=== PATIENT | male | born 1985 | race Caucasian/White ===

== ENCOUNTER → 2017-02-16 | Outpatient (CLI) | payer OTHER ==
[~2017-02-16] MED LIST: DICY20TA57 PO; METH4TAB PO
--- NOTE | 2017-02-16 14:45 | Diagnostic Imaging Report ---
PROCEDURE: MRI left joint lower extremity without contrast. TECHNIQUE: Multiplanar, multisequence non contrast-enhanced MRI of the left lower extremity was accomplished. INDICATION: Lateral knee pain. FINDINGS: The anterior cruciate and posterior cruciate ligaments are intact. Medial collateral ligament is intact. The biceps femoris, fibular collateral, and iliotibial band are intact. Both the medial and lateral menisci are normal in signal intensity and morphology. The articular cartilage is well maintained in all three knee joint compartments. There is a very small knee joint effusion. There are no marrow signal intensity abnormalities. There are no other focal soft tissue abnormalities. IMPRESSION: Small knee joint effusion. No other internal derangement of the knee. Dictated by: Dictated on workstation # [id number]
== END ==
LOC: RAD 13:23
PROVIDERS: ATTEND Orthopaedic Surgery
DX: M25.462 Effusion, left knee (principal)
CPT/HCPCS: 73721

== ENCOUNTER 2017-04-18 19:36 | Emergency (ER) | payer BC, OTHER ==
[~2017-04-18] VITALS: Ht 193 cm; Wt 108.9 kg
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
--- NOTE | 2017-04-18 19:51 | ED Abdominal Pain ---
General Stated Complaint: STOMACH PAIN Source of Information: Patient Exam Limitations: No Limitations History of Present Illness Time Seen By Provider: 19:48 Initial Comments To ER with a one-week history of right lower quadrant abdominal pain. The pain is always present but it is intermittently worse. Exacerbating factors include movement such as bending forward to tie his shoes. He did have one episode of diarrhea yesterday. He has had some urinary urgency but without obvious blood in the urine. He did have some nausea starting today without vomiting. Timing/Duration: 1-2 Days Severity/Quality: Moderate Location: RLQ Radiation: No Radiation Activities at Onset: None Associated Symptoms: No Back Pain, No Chest Pain, No Diaphoresis, No Fever/ Chills, Nausea/Vomiting Allergies and Home Medications Allergies Coded Allergies: No Known Drug Allergies (Unverified , 11/24/11) Home Medications No Active Prescriptions or Reported Meds Review of Systems Constitutional: see HPI EENTM: No Symptoms Reported Respiratory: No Symptoms Reported Cardiovascular: No Symptoms Reported Gastrointestinal: See HPI, Abdominal Pain Genitourinary: No Symptoms Reported Musculoskeletal: no symptoms reported Skin: no symptoms reported Psychiatric/Neurological: No Symptoms Reported Endocrine: No Symptoms Reported Past Qudklgi-Egrzov-Baqsuk Hx Patient Social History Recent Foreign Travel: No Contact w/Someone Who Travel: No Reproductive System Hx Reproductive Disorders: No Sexually Transmitted Disease: No Gastrointestinal Gastrointestinal Disorders: Colitis Physical Exam Vital Signs VS - Last 72 Hours, by Label 04/18/17 19:45 Temp 98.5 Pulse 62 Resp 16 B/P (MAP) 121/84 Pulse Ox 98 O2 Delivery Room Air Capillary Refill : General Appearance: WD/WN, no apparent distress HEENT: PERRL/EOMI, normal ENT inspection Neck: non-tender, full range of motion Respiratory: no respiratory distress, no accessory muscle use Gastrointestinal: normal bowel sounds, soft, tenderness (right lower quadrant) Extremities: normal range of motion, non-tender Neurologic/Psychiatric: alert, normal mood/affect, oriented x 3 Skin: normal color, warm/dry Progress/Results/Core Measures Results/Orders Lab Results Laboratory Tests Test 04/18/17 19:45 04/18/17 19:52 Range/Units Urine Color YELLOW Urine Clarity CLEAR Urine pH 5 5-9 Urine Specific [place] 1.025 H 1.016-1.022 Urine Protein NEGATIVE NEGATIVE Urine Glucose (UA) NEGATIVE NEGATIVE Urine Ketones NEGATIVE NEGATIVE Urine Nitrite NEGATIVE NEGATIVE Urine Bilirubin NEGATIVE NEGATIVE Urine Urobilinogen NORMAL NORMAL MG/DL Urine Leukocyte Esterase NEGATIVE NEGATIVE Urine RBC (Auto) NEGATIVE NEGATIVE Urine RBC NONE /HPF Urine WBC RARE /HPF Urine Crystals NONE /LPF Urine Bacteria NEGATIVE /HPF Urine Casts NONE /LPF Urine Mucus SMALL H /LPF Urine Culture Indicated NO White Blood Count 7.7 4.3-11.0 10^3/uL Red Blood Count 4.98 4.35-5.85 10^6/uL Hemoglobin 15.1 13.3-17.7 G/DL Hematocrit 43 40-54 % Mean Corpuscular Volume 86 80-99 FL Mean Corpuscular Hemoglobin 30 25-34 PG Mean Corpuscular Hemoglobin Concent 35 32-36 G/DL Red Cell Distribution Width 12.8 10.0-14.5 % Platelet Count 244 130-400 10^3/uL Mean Platelet Volume 9.1 7.4-10.4 FL Neutrophils (%) (Auto) 56 42-75 % Lymphocytes (%) (Auto) 36 12-44 % Monocytes (%) (Auto) 7 0-12 % Eosinophils (%) (Auto) 1 0-10 % Basophils (%) (Auto) 0 0-10 % Neutrophils # (Auto) 4.3 1.8-7.8 X 10^3 Lymphocytes # (Auto) 2.7 1.0-4.0 X 10^3 Monocytes # (Auto) 0.6 0.0-1.0 X 10^3 Eosinophils # (Auto) 0.1 0.0-0.3 10^3/uL Basophils # (Auto) 0.0 0.0-0.1 10^3/uL Sodium Level 141 135-145 MMOL/L Potassium Level 3.6 3.6-5.0 MMOL/L Chloride Level 107 98-107 MMOL/L Carbon Dioxide Level 24 21-32 MMOL/L Anion Gap 10 5-14 MMOL/L Blood Urea Nitrogen 9 7-18 MG/DL Creatinine 1.00 0.60-1.30 MG/DL Estimat Glomerular Filtration Rate > 60 BUN/Creatinine Ratio 9 Glucose Level 97 70-105 MG/DL Calcium Level 9.1 8.5-10.1 MG/DL Total Bilirubin 0.7 0.1-1.0 MG/DL Aspartate Amino Transf (AST/SGOT) 24 5-34 U/L Alanine Aminotransferase (ALT/SGPT) 50 0-55 U/L Alkaline Phosphatase 70 40-136 U/L C-Reactive Protein High Sensitivity 0.68 H 0.00-0.50 MG/DL Total Protein 7.5 6.4-8.2 GM/DL Albumin 4.4 3.2-4.5 GM/DL Lipase 24 8-78 U/L My Orders Orders - ELSA BERGER APRN Cbc With Automated Diff (04/18/17 19:47) Hs C Reactive Protein (04/18/17 19:47) Ua Culture If Indicated (04/18/17 19:47) Saline Lock/Iv-Start (04/18/17 19:47) Comprehensive Metabolic Panel (04/18/17 19:47) Lipase (04/18/17 19:47) Ct Abd/Pelv W (Appendicitis) (04/18/17 19:47) Iohexol Injection (Omnipaque 350 Mg/Ml 1 (04/18/17 20:00) Ns (Ivpb) (Sodium Chloride 0.9% Ivpb Bag (04/18/17 20:00) Medications Given in ED Current Medications Medications Dose Ordered Sig/Chuyita Route Start Time Stop Time Status Last Admin Dose Admin Iohexol 100 ml ONCE ONCE IV 04/18/17 20:00 04/18/17 20:32 DC 04/18/17 20:10 100 ML Sodium Chloride 100 ml ONCE ONCE IV 04/18/17 20:00 04/18/17 20:32 DC 04/18/17 20:10 80 ML Vital Signs/I&O Vital Sign - Last 12Hours 04/18/17 19:45 Temp 98.5 Pulse 62 Resp 16 B/P (MAP) 121/84 Pulse Ox 98 O2 Delivery Room Air Diagnostic Imaging Diagonstic Imaging: CT Comments NAME: SARAHI BRAVO [facility] REC#: [id number] PT STATUS: REG ER : 1985 PHYSICIAN: ELSA BERGER APRN ADMIT DATE: 04/18/17/ER Draft Date of Exam:04/18/17 CT ABD/PELV W (APPENDICITIS) PROCEDURE: CT abdomen and pelvis with contrast, rule out appendicitis. TECHNIQUE: Multiple contiguous axial images were obtained through the abdomen and pelvis after the administration of intravenous contrast. INDICATION: Right lower quadrant pain. COMPARISON: 09/23/2012. FINDINGS: The lung bases are clear. The appendix is visualized and is normal. There is no periappendiceal edema. The terminal ileum is normal. Small bowel is not distended. No bowel wall thickening is seen. The colon shows normal stool and gas pattern without evidence of constipation. No findings to indicate diverticulitis. No adenopathy is seen to suggest mesenteric adenitis. The liver appears normal. The gallbladder and bile ducts are normal. The pancreas and spleen are normal. The adrenal glands are normal. Kidneys appear normal. There is normal enhancement of the abdominal organs and vessels following IV contrast. There is no free air or free fluid. No bony lesions have developed. IMPRESSION: 1. The appendix is well visualized and normal. No findings to suggest inflammatory bowel disease. 2. No acute abdominal findings demonstrated. Dictated on workstation # [id number] Dict: 04/18/172030 Trans: 04/18/172035 [facility] [id number] Interpreted by: CAL SHORT MD Electronically signed by: Departure Impression Impression: Primary Impression: abdominal pain Disposition: 01 HOME, SELF-CARE Condition: Stable Departure-Patient Inst. Decision time for Depature: 20:39 Referrals: YOUNG MCGEE MD (PCP/Family) Primary Care Physician Patient Instructions: Acute Abdomen (Belly Pain), Adult (DC) Add. Discharge Instructions: 1. Follow-up with Dr. Mcgee 2. Return to ER for any worsening symptoms or other concerns 3. Scripts No Active Prescriptions or Reported Meds Copy Copies To 1: YOUNG MCGEE MD, PETER J LITIGATION ASSOCIATE Apr 18, 2017 19:50
[2017-04-18 19:59] LABS: BILIRUBIN,URINE NEGATIVE (NEGATIVE); KETONES,URINE NEGATIVE (NEGATIVE); LEUKOCYTE ESTERASE ,URINE NEGATIVE (NEGATIVE); NITRITE,URINE NEGATIVE (NEGATIVE); PH,URINE 5 (5-9); PROTEIN,URINE NEGATIVE (NEGATIVE); UROBILINOGEN,URINE NORMAL (NORMAL)
[2017-04-18 19:59] LABS: BASOPHILS % (AUTO) 0 % (0-10); EOSINOPHILS # (AUTO) 0.1 10^3/uL (0.0-0.3); EOSINOPHILS % (AUTO) 1 % (0-10); LYMPHOCYTES # (AUTO) 2.7 X 10^3 (1.0-4.0); LYMPHOCYTES % (AUTO) 36 % (12-44); MEAN CORPUSCULAR HEMOGLOBIN 30 PG (25-34); MEAN CORPUSCULAR HGB CONC 35 G/DL (32-36); MEAN CORPUSCULAR VOLUME 86 FL (80-99); MEAN PLATELET VOLUME 9.1 FL (7.4-10.4); MONOCYTES # (AUTO) 0.6 X 10^3 (0.0-1.0); MONOCYTES % (AUTO) 7 % (0-12); NEUTROPHILS # (AUTO) 4.3 X 10^3 (1.8-7.8); NEUTROPHILS % (AUTO) 56 % (42-75); PLATELET COUNT 244 10^3/uL (130-400); RED BLOOD COUNT 4.98 10^6/uL (4.35-5.85); RED CELL DISTRIBUTION WIDTH 12.8 % (10.0-14.5); WHITE BLOOD COUNT 7.7 10^3/uL (4.3-11.0)
[2017-04-18] MEDS ORDERED: NS 100 ML (IVPB) BAG IV ONE (20:00)
[2017-04-18] MEDS ORDERED: IOHEXOL 350 MG/ML 100 ML (OMNIPAQUE 350) VIAL IV ONE (20:00)
[2017-04-18 20:19] LABS: ALANINE AMINOTRANSFERASE 50 U/L (0-55); ALBUMIN 4.4 GM/DL (3.2-4.5); ANION GAP 10 MMOL/L (5-14); ASPARTATE AMINO TRANSFERASE 24 U/L (5-34); BILIRUBIN,TOTAL 0.7 MG/DL (0.1-1.0); BLOOD UREA NITROGEN 9 MG/DL (7-18); BUN/CREATININE RATIO 9; CALCIUM 9.1 MG/DL (8.5-10.1); CARBON DIOXIDE 24 MMOL/L (21-32); CHLORIDE 107 MMOL/L (98-107); GFR ESTIMATED > 60; GLUCOSE 97 MG/DL (70-105); LIPASE 24 U/L (8-78); POTASSIUM 3.6 MMOL/L (3.6-5.0); SODIUM 141 MMOL/L (135-145); TOTAL PROTEIN 7.5 GM/DL (6.4-8.2); hs C REACTIVE PROTEIN 0.68 MG/DL (0.00-0.50)
[2017-04-18 20:21] LABS: WBC,URINE RARE /HPF
--- NOTE | 2017-04-18 20:36 | Diagnostic Imaging Report ---
PROCEDURE: CT abdomen and pelvis with contrast, rule out appendicitis. TECHNIQUE: Multiple contiguous axial images were obtained through the abdomen and pelvis after the administration of intravenous contrast. INDICATION: Right lower quadrant pain. COMPARISON: 09/23/2012. FINDINGS: The lung bases are clear. The appendix is visualized and is normal. There is no periappendiceal edema. The terminal ileum is normal. Small bowel is not distended. No bowel wall thickening is seen. The colon shows normal stool and gas pattern without evidence of constipation. No findings to indicate diverticulitis. No adenopathy is seen to suggest mesenteric adenitis. The liver appears normal. The gallbladder and bile ducts are normal. The pancreas and spleen are normal. The adrenal glands are normal. Kidneys appear normal. There is normal enhancement of the abdominal organs and vessels following IV contrast. There is no free air or free fluid. No bony lesions have developed. IMPRESSION: 1. The appendix is well visualized and normal. No findings to suggest inflammatory bowel disease. 2. No acute abdominal findings demonstrated. Dictated by: Dictated on workstation # [id number]
[2017-04-18 20:49] VITALS: BP 122/80
== END 2017-04-18 20:49 | disposition home or self-care (01) ==
LOC: ER 19:36
DX: R10.31 Right lower quadrant pain (principal)
CPT/HCPCS: 36415; 74177; 80053; 81000; 83690; 85025; 86141

== ENCOUNTER 2018-09-30 15:25 | Emergency (ER) | payer OTHER, BC ==
[~2018-09-30] VITALS: Ht 190.5 cm; Wt 102.1 kg
[2018-09-30 15:27] VITALS: BP 144/97
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
[2018-09-30] MEDS ORDERED: TETANUS,DIPTH,PERTUSS P/F (BOOSTRIX) 0.5 ML VIAL IM ONE (15:45)
--- NOTE | 2018-09-30 16:03 | Diagnostic Imaging Report ---
INDICATION: Back pain. 3 views were obtained. FINDINGS: Alignment, vertebral body heights and disc spaces are within normal limits. There is no spondylolysis or spondylolisthesis. There is no acute fracture or traumatic subluxation. IMPRESSION: No acute radiographic abnormality. Dictated by: Dictated on workstation # [id number]
--- NOTE | 2018-09-30 16:22 | Diagnostic Imaging Report ---
PROCEDURE: CT head and CT cervical spine without contrast. TECHNIQUE: Multiple contiguous axial images were obtained through the brain and cervical spine without the use of intravenous contrast. Sagittal and coronal reformations through the cervical spine were then performed. Auto Exposure Controls were utilized during the CT exam to meet ALARA standards for radiation dose reduction. INDICATION: Head and neck pain after trauma. FINDINGS: The ventricles and sulci are within normal limits. There is no hydrocephalus or cerebral edema. There is no midline shift or mass effect. There is no intracranial mass, hemorrhage or extra-axial fluid collection. The visualized paranasal sinuses and mastoid air cells are clear. No fractures are identified. CERVICAL SPINE: Alignment is normal. There is no fracture or traumatic subluxation. The prevertebral soft tissues are within normal limits. The odontoid is intact and the lateral masses are well aligned. There are no soft tissue abnormalities. IMPRESSION: 1. No acute intracranial process. 2. No focal abnormality in the cervical spine. Dictated by: Dictated on workstation # [id number]
[2018-09-30] MEDS ORDERED: METH-313 PO (16:25)
--- OUTSIDE RECORDS SUMMARY | 2018-09-30 17:32 | XMS REPORT | Continuity of Care Document ---
Author Organization Unknown Address Unknown Allergies Active Description Code Type Severity Reaction Onset Reported/Identified Relationship to Patient Clinical Status Yes No Known Drug Allergies [id number] Drug Allergy Unknown N/A 11/24/2011 Medications There is no data. 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 12/19/2015 Ot V72.84 EXAM PRE- OPERATIVE NOS 12/19/2015 Ot 565.0 ANAL FISSURE 12/19/2015 Ot V72.84 EXAM PRE- OPERATIVE NOS 12/19/2015 BOB DO JOLIE Kasper Ot M75.91 SHOULDER LESION, UNSPECIFIED, RIGHT SHOU 12/19/2015 BBO JOLIE Kasper Ot 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 09/30/2016 Ot V72.84 EXAM PRE- OPERATIVE NOS 09/30/2016 Ot 565.0 ANAL FISSURE 09/30/2016 Ot V72.84 EXAM PRE- OPERATIVE NOS 09/30/2016 BOB JOLIE Kasper Ot M75.91 SHOULDER LESION, UNSPECIFIED, RIGHT SHOU 09/30/2016 BOB JOLIE Kasper Ot 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 02/12/2017 Ot V72.84 EXAM PRE- OPERATIVE NOS 02/12/2017 Ot 565.0 ANAL FISSURE 02/12/2017 Ot V72.84 EXAM PRE- OPERATIVE NOS 02/12/2017 BOB JOLIE Kasper Ot M75.91 SHOULDER LESION, UNSPECIFIED, RIGHT SHOU 02/12/2017 BOB DO, JOLIE Ranjith Ot 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 04/18/2017 Ot V72.84 EXAM PRE- OPERATIVE NOS 04/18/2017 Ot 565.0 ANAL FISSURE 04/18/2017 Ot V72.84 EXAM PRE- OPERATIVE NOS 04/18/2017 BOB DO, JOLIE Ranjith Ot M75.91 SHOULDER LESION, UNSPECIFIED, RIGHT SHOU 04/18/2017 BOB DO, JOLIE Ranjith Ot 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 Results Test Result Range Complete urinalysis with reflex to culture - 04/18/17 19:45 Urine color determination YELLOW NRG Urine clarity determination CLEAR NRG Urine pH measurement by test strip 5 5-9 Specific gravity of urine by test strip 1.025 1.016- 1.022 Urine protein assay by test strip, semi-quantitative NEGATIVE NEGATIVE Urine glucose detection by automated test strip NEGATIVE NEGATIVE Erythrocytes detection in urine sediment by light microscopy NEGATIVE NEGATIVE Urine ketones detection by automated test strip NEGATIVE NEGATIVE Urine nitrite detection by test strip NEGATIVE NEGATIVE Urine total bilirubin detection by test strip NEGATIVE NEGATIVE Urine urobilinogen measurement by automated test strip (mass/volume) NORMAL NORMAL Urine leukocyte esterase detection by dipstick NEGATIVE NEGATIVE Automated urine sediment erythrocyte count by microscopy (number/high power field) NONE NRG Automated urine sediment leukocyte count by microscopy (number/high power field ) RARE NRG Bacteria detection in urine sediment by light microscopy NEGATIVE NRG Crystals detection in urine sediment by light microscopy NONE NRG Casts detection in urine sediment by light microscopy NONE NRG Mucus detection in urine sediment by light microscopy SMALL NRG Complete urinalysis with reflex to culture NO NRG Complete blood count (CBC) with automated white blood cell (WBC) differential - 04/18/17 19:52 Blood leukocytes automated count (number/volume) 7.7 10*3/uL 4.3-11.0 Blood erythrocytes automated count (number/volume) 4.98 10*6/uL 4.35-5.85 Venous blood hemoglobin measurement (mass/volume) 15.1 g/dL 13.3-17.7 Blood hematocrit (volume fraction) 43 % 40-54 Automated erythrocyte mean corpuscular volume 86 [foz_us] 80-99 Automated erythrocyte mean corpuscular hemoglobin (mass per erythrocyte) 30 pg 25-34 Automated erythrocyte mean corpuscular hemoglobin concentration measurement ( mass/volume) 35 g/dL 32-36 Automated erythrocyte distribution width ratio 12.8 % 10.0-14.5 Automated blood platelet count (count/volume) 244 10*3/uL 130-400 Automated blood platelet mean volume measurement 9.1 [foz_us] 7.4-10.4 Automated blood neutrophils/100 leukocytes 56 % 42-75 Automated blood lymphocytes/100 leukocytes 36 % 12-44 Blood monocytes/100 leukocytes 7 % 0-12 Automated blood eosinophils/100 leukocytes 1 % 0-10 Automated blood basophils/100 leukocytes 0 % 0-10 Blood neutrophils automated count (number/volume) 4.3 10*3 1.8-7.8 Blood lymphocytes automated count (number/volume) 2.7 10*3 1.0-4.0 Blood monocytes automated count (number/volume) 0.6 10*3 0.0-1.0 Automated eosinophil count 0.1 10*3/uL 0.0-0.3 Automated blood basophil count (count/volume) 0.0 10*3/uL 0.0-0.1 Comprehensive metabolic panel - 04/18/17 19:52 Serum or plasma sodium measurement (moles/volume) 141 mmol/L 135-145 Serum or plasma potassium measurement (moles/volume) 3.6 mmol/L 3.6-5.0 Serum or plasma chloride measurement (moles/volume) 107 mmol/L 98-107 Carbon dioxide 24 mmol/L 21-32 Serum or plasma anion gap determination (moles/volume) 10 mmol/L 5-14 Serum or plasma urea nitrogen measurement (mass/volume) 9 mg/dL 7-18 Serum or plasma creatinine measurement (mass/volume) 1.00 mg/dL 0.60-1.30 Serum or plasma urea nitrogen/creatinine mass ratio 9 NRG Serum or plasma creatinine measurement with calculation of estimated glomerular filtration rate > NRG Serum or plasma glucose measurement (mass/volume) 97 mg/dL 70-105 Serum or plasma calcium measurement (mass/volume) 9.1 mg/dL 8.5-10.1 Serum or plasma total bilirubin measurement (mass/volume) 0.7 mg/dL 0.1-1.0 Serum or plasma alkaline phosphatase measurement (enzymatic activity/volume) 70 U/L 40-136 Serum or plasma aspartate aminotransferase measurement (enzymatic activity/ volume) 24 U/L 5-34 Serum or plasma alanine aminotransferase measurement (enzymatic activity/volume ) 50 U/L 0-55 Serum or plasma protein measurement (mass/volume) 7.5 g/dL 6.4-8.2 Serum or plasma albumin measurement (mass/volume) 4.4 g/dL 3.2-4.5 Lipase - 04/18/17 19:52 Lipase 24 U/L 8-78 Serum or plasma C reactive protein measurement (mass/volume) - 04/18/17 19:52 Serum or plasma C reactive protein measurement (mass/volume) 0.68 mg /dL 0.00-0.50 Encounters ACCT No. Visit Date/Time Discharge Status Pt. Type Provider Facility Loc./Unit Complaint [id number] 09/30/2018 15:26:00 09/30/2018 16:32:00 DIS Emergency ELSA BERGER APRN [facility] ER RAN INTO [facility] ON LICENSE OF [facility] [id number] 04/18/2017 19:36:00 04/18/2017 20:49:00 DIS Emergency ELSA BERGER APRN [facility] ER STOMACH PAIN [id number] 02/16/2017 13:23:00 02/16/2017 23:59:59 CLS Outpatient JOLIE ROJAS DO [facility] RAD TRAUMATIC LMT LT KNEE [id number] 11/23/2015 13:03:00 11/23/2015 13:35:00 DIS Outpatient JOLIE ROJAS DO [facility] REHAB S/P LABRAL REPAIR R SHOULDER [id number] 07/17/2015 08:24:00 07/17/2015 23:59:59 CLS Outpatient JOLIE ROJAS DO [facility] RAD PAIN IN R SHOULDER, MIND SECONDARY OA [id number] 06/19/2015 12:44:00 06/19/2015 13:37:00 DIS Emergency ELSA BERGER APRN [facility] ER RIGHT SHOULDER INJURY [id number] 02/28/2014 08:55:00 02/28/2014 23:59:59 CLS Outpatient COLTHARP BLANCA DIAZ [facility] OCC [id number] 10/28/2012 16:54:00 10/28/2012 23:59:59 CLS Outpatient SYH, TOBY [employer]TER [facility] QUICK [id number] 05/22/2014 16:30:00 Document Registration [id number] 05/22/2014 16:30:00 Document Registration [id number] 05/22/2014 16:30:00 Document Registration [id number] 05/22/2014 16:30:00 Document Registration [id number] 05/22/2014 16:30:00 Document Registration [id number] 09/23/2012 17:00:00 Document Registration [id number] 01/29/2012 06:14:00 Document Registration [id number] 01/20/2012 14:11:00 Document Registration [id number] 11/25/2011 08:04:00 Document Registration [id number] 11/24/2011 08:08:00 Document Registration [id number] 06/11/2011 02:46:00 Document Registration [id number] 07/02/2008 15:09:00 Document Registration [id number] 02/28/2014 09:32:00 02/28/2014 23:59:59 CLS Outpatient [id number] 09/03/2018 11:05:00 09/03/2018 23:59:59 CLS Outpatient MANINDER ARCE APRN [facility]
== END 2018-09-30 16:32 | disposition home or self-care (01) ==
LOC: EDUNIT# 15:25 → ER 15:26
DX: S06.0X0A Concussion without loss of consciousness, initial encounter (principal); S80.811A Abrasion, right lower leg, initial encounter; S60.511A Abrasion of right hand, initial encounter; S60.512A Abrasion of left hand, initial encounter; R40.2142 Coma scale, eyes open, spontaneous, at arrival to emergency department; R40.2252 Coma scale, best verbal response, oriented, at arrival to emergency department; R40.2362 Coma scale, best motor response, obeys commands, at arrival to emergency department; Z90.89 Acquired absence of other organs; Z87.19 Personal history of other diseases of the digestive system; Z23 Encounter for immunization; W55.22XA Struck by cow, initial encounter; Y92.59 Other trade areas as the place of occurrence of the external cause; Y99.0 Civilian activity done for income or pay
CPT/HCPCS: 70450; 72100; 72125; 90715

== ENCOUNTER 2020-09-06 14:04 | Emergency (ER) | payer OTHER, BC ==
[~2020-09-06] VITALS: Ht 190.5 cm; Wt 113.6 kg
[~2020-09-06 14:04] MED LIST changes: +METH-313 PO
[2020-09-06] MEDS ORDERED: fentaNYL INJ 100 MCG/2 ML AMP IVP ONE ×2 (14:15→14:45)
--- NOTE | 2020-09-06 14:32 | ED Upper Extremity ---
General Chief Complaint: Upper Extremity Stated Complaint: RIGHT ARM INJURY History of Present Illness Date Seen by Provider: Sep 06, 2020 Time Seen by Provider: 14:07 Initial Comments 34-year-old male presents for right shoulder pain. He was pushing with his right arm when he felt it pop out of place. He has had previous dislocations and AC separation in the right shoulder, he had surgery in 2014 and no dislocations since then. He denies any paresthesias in his right upper extremity. He denies any other injuries and has not taken any pain medication prior to arrival. Onset: just prior to arrival, this afternoon Severity: moderate Pain/Injury Location: right shoulder Method of Injury: direct blow Allergies and Home Medications Allergies Coded Allergies: No Known Drug Allergies (Unverified , 11/24/11) Home Medications Methocarbamol 750 Mg Tablet, 750 MG PO Q6H PRN for PAIN-MODERATE TO SEVERE Prescribed by: ELSA BERGER on 09/30/18 1625 Tramadol HCl 50 Mg Tablet, 50 MG PO Q6H PRN for PAIN Prescribed by: URBAN SR on 09/06/20 1515 Patient Home Medication List Home Medication List Reviewed: Yes Review of Systems Constitutional: no symptoms reported, see HPI Respiratory: no symptoms reported, see HPI Cardiovascular: no symptoms reported, see HPI Musculoskeletal: see HPI, joint pain (Right shoulder) All Other Systems Reviewed Negative Unless Noted: Yes Past Aczhzch-Jsoalf-Nelqht Hx Past Med/Social Hx: Reviewed Nursing Past Med/Soc Hx Patient Social History Type Used: Smokeless Tobacco 2nd Hand Smoke Exposure: No Recent Hopitalizations: No Immunizations Up To Date Tetanus Booster (TDap): Less than 5yrs PED Vaccines UTD: Yes Seasonal Allergies Seasonal Allergies: Yes Past Medical History Surgeries: Yes (SPHINCTEROTOMY) Orthopedic Respiratory: No (occ short of breath) Cardiac: No Neurological: No Reproductive Disorders: No Sexually Transmitted Disease: No Genitourinary: No Gastrointestinal: Yes Colitis Musculoskeletal: No Endocrine: No HEENT: No Cancer: No Psychosocial: No Integumentary: No Physical Exam Vital Signs Vital Signs - First Documented 09/06/20 14:07 Temp 35.0 Pulse 60 Resp 18 B/P (MAP) 144/101 (115) Pulse Ox 98 O2 Delivery Room Air Capillary Refill : Height, Weight, BMI Height: 6'3.00" Weight: 225lbs. 0oz. 102.832535jy; BMI Method:Stated General Appearance: WD/WN, no apparent distress Neck: non-tender, full range of motion, supple, normal inspection Cardiovascular: normal peripheral pulses, regular rate, rhythm Respiratory: chest non-tender, lungs clear, normal breath sounds Gastrointestinal: normal bowel sounds, non tender, soft Shoulder: asymmetry, bone tenderness (Proximal humerus), deformity (Positive sulcus); No ecchymosis; limited ROM (Secondary to pain), pain, soft tissue tenderness (Anterior) Elbow/Forearm: normal inspection, non-tender, no evidence of injury, normal ROM, Right Hand: normal inspection, non-tender, no evidence of injury, normal ROM, Right Neurologic/Tendon: normal sensation, normal motor functions, normal tendon functions Neurologic/Psychiatric: no motor/sensory deficits, alert, normal mood/affect, oriented x 3 Skin: normal color, warm/dry Procedures/Interventions Splinting and Joint Reduction : Location: Right shoulder Pre-Proc Neuro Vasc Exam: normal Post-Proc Neuro Vasc Exam: normal Progress The patient was given fentanyl 50 mcg IV upon admission for pain control. Neurovascular status was intact right upper extremity. Once x-rays confirmed anterior dislocation of the right shoulder the patient signed consent for closed reduction. Respiratory therapy here end-tidal CO2 and , pulse oximetry for monitoring. Dr. Smalls agreed with plan for closed reduction and use of Ketamine for pain control, available to assist with patient care, if needed. Ketamine 20 mg was given IV once adequate pain management was in place, the right shoulder was reduced easily with gentle lateral traction and countertraction in the axilla. Postreduction the shoulder was stable with full passive range of motion and some active range of motion from the patient. Postreduction AP and axillary x-rays showed satisfactory reduction with no fractures. Radial pulse right wrist 2+ and symmetric with the left, caramel cutter hand strength 5/5, capillary refill less than 3 seconds and full sensation to light touch in the right upper extremity. A sling was put in place to the right upper extremity. Dr. Smalls updated on patient status. Joint Reduction Site: shoulder (R) Pre-Procedure NV Exam: Yes post joint reduction film: joint reduced Progress/Results/Core Measures Results/Orders My Orders Orders - URBAN SR Fentanyl Injection (Sublimaze Injection (09/06/20 14:15) Shoulder, Right, 1 View (09/06/20 14:12) Ketamine Injection (Ketalar Injection) (09/06/20 14:34) Shoulder, Right, 2 Views (09/06/20 14:39) Ondansetron Injection (Zofran Injectio (09/06/20 15:30) Medications Given in ED Current Medications Medications Dose Ordered Sig/Chuyita Route Start Time Stop Time Status Last Admin Dose Admin Fentanyl Citrate 50 mcg ONCE ONCE IVP 09/06/20 14:15 09/06/20 14:16 DC 09/06/20 14:22 50 MCG Ondansetron HCl 4 mg ONCE ONCE IVP 09/06/20 15:30 09/06/20 15:31 DC 09/06/20 15:26 4 MG Vital Signs/I&O 09/06/20 09/06/20 14:07 15:30 Temp 35.0 35.0 Pulse 60 69 Resp 18 18 B/P (MAP) 144/101 (115) 102/68 (115) Pulse Ox 98 95 O2 Delivery Room Air Progress Progress Note : Time: 14:07 Progress Note Patient seen and evaluated, will obtain x-rays of the right shoulder, fentanyl 50 mcg IV for pain. 1510 patient stable postreduction, discharge instructions and return precautions reviewed. All questions answered. Diagnostic Imaging Diagonstic Imaging: Xray Plain Films/CT/US/NM/MRI: other (shoulder) Comments NAME: SARAHI BRAVO [facility] REC#: [id number] PT STATUS: REG ER : 1985 PHYSICIAN: URBAN SR ADMIT DATE: 09/06/20/ER Draft Date of Exam:09/06/20 SHOULDER, RIGHT, 1 VIEW INDICATION: shoulder pain TECHNIQUE: Single view of the right shoulder. CORRELATION STUDY: 06/19/2015. FINDINGS: There is inferomedial, likely anterior dislocation of the right humeral head. No significant displaced fracture. The clavicle and acromioclavicular joint appear unremarkable. The visualized soft tissues are unremarkable. IMPRESSION: 1. Inferomedial dislocation of the right shoulder. Dictated on workstation # [id number] Dict: 09/06/20 1435 Trans: 09/06/20 1443 [id number] [id number] Interpreted by: MIKEY,GEOFFREY K DO Electronically signed by: Reviewed: Reviewed by Me Departure Impression Primary Impression: Dislocation of right shoulder joint Qualified Codes: S43.004A - Unspecified dislocation of right shoulder joint, initial encounter Additional Impression: Shoulder pain, right Qualified Codes: M25.511 - Pain in right shoulder Disposition: 01 HOME, SELF-CARE Condition: Improved Departure-Patient Inst. Decision time for Depature: 15:10 Referrals: YOUNG NIXON MD (PCP/Family) Primary Care Physician JOLIE CALDWELL DO Patient Instructions: Shoulder Pain (DC), Shoulder Dislocation (DC) Add. Discharge Instructions: Alternate ice to right shoulder 20 minutes every 2 hours while awake. Alternate between Tylenol and ibuprofen every minutes 4 hours as needed for pain. Follow-up with Dr. Caldwell in 1 to 2 weeks. Sling at all times, may remove for bathing. Return to the emergency department for new, urgent healthcare needs. All discharge instructions reviewed with patient and/or family. Voiced understanding. Scripts Tramadol HCl (Tramadol HCl) 50 Mg Tablet 50 MG PO Q6H PRN for PAIN, #20 TAB 0 Refills Prov: URBAN SR 09/06/20 Work/School Note: Work Release Form Date Seen in the Emergency Department: Sep 06, 2020 Return to Work: Sep 07, 2020 Restrictions: Need Release from Doctor Other Restrictions Listed Below: Light duty, must wear sling to right arm Restrictions: Needs cleared by ortho for full return to work URBAN SR Sep 06, 2020 14:31
[2020-09-06] MEDS ORDERED: KETAMINE HCL 100 MG/ML 5 ML VIAL IV STA (14:34)
--- NOTE | 2020-09-06 14:44 | Diagnostic Imaging Report ---
INDICATION: shoulder pain TECHNIQUE: Single view of the right shoulder. CORRELATION STUDY: 06/19/2015. FINDINGS: There is inferomedial, likely anterior dislocation of the right humeral head. No significant displaced fracture. The clavicle and acromioclavicular joint appear unremarkable. The visualized soft tissues are unremarkable. IMPRESSION: 1. Inferomedial dislocation of the right shoulder. Dictated by: Dictated on workstation # [id number]
[2020-09-06] MEDS ORDERED: TRM50T PO (15:14)
--- NOTE | 2020-09-06 15:17 | Diagnostic Imaging Report ---
INDICATION: Postreduction imaging, shoulder dislocation. EXAMINATION: Right shoulder from 09/06/2020. COMPARISON: Comparison to the same date at an earlier time. FINDINGS: There is mild Hill-Sachs deformity along the superolateral posterior border of the humerus. No definite displaced fracture fragments appreciated. There is better alignment compared to previous imaging. IMPRESSION: 1. Hill-Sachs deformity with remaining examination unremarkable. Dictated by: Dictated on workstation # [id number]
[2020-09-06 15:30] VITALS: BP 102/68
[2020-09-06] MEDS ORDERED: ONDANSETRON 4 MG/2 ML (SDV) Z0FRAN IVP ONE (15:30)
== END 2020-09-06 15:30 | disposition home or self-care (01) ==
LOC: EDUNIT# 14:04 → ER 14:06
DX: S43.004A Unspecified dislocation of right shoulder joint, initial encounter (principal); I10 Essential (primary) hypertension; X50.0XXA Overexertion from strenuous movement or load, initial encounter
CPT/HCPCS: 73020; 73030; 99282; A4565